=== PATIENT | female | born 1965 | race Caucasian/White ===

== ENCOUNTER 2016-10-17 06:41 | Inpatient (IN) | payer MEDICARE, MEDICAID ==
[~2016-10-17] VITALS: Ht 170.2 cm; Wt 66.1 kg
[2016-10-17] VITALS (46 sets, daily range): BP systolic 90–160; RESP 15–30; TEMP 92.2–94.9; BMI 25.1
[2016-10-17] MEDS ORDERED: SODIUM CHLORIDE 0.9% 100 ML IV ONE (08:46)
[2016-10-17] MEDS ORDERED: CEFTRIAXONE 1 GM VIAL ONE (08:46)
[2016-10-17] MEDS ORDERED: MAGNESIUM SULFATE IV ONE (08:46)
[2016-10-17] MEDS ORDERED: SODIUM CHLORIDE 0.9% 2,000 ML ONE (09:59)
[2016-10-17] MEDS ORDERED: PHARMACY TO DOSE VANCOMYCIN IV SCH (10:15)
[2016-10-17] MEDS ORDERED: SALINE FLUSH 10 ML FLUSH PRN (10:20)
[2016-10-17] MEDS ORDERED: ONDANSETRON 4 MG VIAL IV PRN (10:20)
[2016-10-17] MEDS ORDERED: DUONEB INH PRN (10:20)
[2016-10-17] MEDS ORDERED: SODIUM CHLORIDE 0.9% 1,000 ML IV SCH (10:20)
[2016-10-17] MEDS ORDERED: GLUCAGON 1 MG VIAL IM PRN (10:35)
[2016-10-17] MEDS ORDERED: DEXTROSE 50% SYRINGE 50 ML IV PRN ×3 (10:35→12:40)
[2016-10-17] MEDS ORDERED: SOD BICARB 8.4% VIAL 50 ML ONE (11:26)
[2016-10-17] MEDS ORDERED: DEXTROSE 5% 1,000 ML ONE (11:27)
[2016-10-17] MEDS ORDERED: INSULIN DRIP 1 UNIT/ML 100 ML IV SCH (12:15)
[2016-10-17] MEDS ORDERED: [UNRECOGNIZED DRUG - REMARK] XX SCH (12:21)
[2016-10-17] MEDS: MAGNESIUM SULF 1 GM/100 ML 100 ML IV SCH ×4 (12:23→17:05)
[2016-10-17] MEDS ORDERED: NOREPINEPHRINE 1 MG/ML 4 ML VIAL IV ONE (12:31)
[2016-10-17] MEDS ORDERED: EPINEPHrine 1 MG/10 ML SYR IV ONE (12:32)
[2016-10-17] MEDS ORDERED: SODIUM CHLORIDE 0.9% 3,000 ML ONE (12:32)
[2016-10-17] MEDS ORDERED: SOD BICARB 8.4% SYR 50 ML ONE (12:32)
[2016-10-17] MEDS ORDERED: LACTATED RINGERS IV ONE (12:34)
[2016-10-17] MEDS ORDERED: SODIUM CHLORIDE 0.9% 250 ML IV ONE (12:34)
[2016-10-17] MEDS ORDERED: ED DOPamine PREMIX 250 ML IV ONE (12:34)
[2016-10-17] MEDS ORDERED: DEXTROSE 5% IV SCH (12:40)
[2016-10-17] MEDS ORDERED: CISATRACURIUM BESYLATE IV SCH (12:40)
[2016-10-17] MEDS: [UNRECOGNIZED DRUG - REMARK] XX SCH ×3 (12:40→23:59)
[2016-10-17] MEDS ORDERED: FENTANYL IV SCH (12:45)
[2016-10-17] MEDS: SODIUM BICARB 8.4% 150 ML in DEXTROSE 5% 1,000 ML IV SCH ×2 (12:52→20:55)
[2016-10-17] MEDS: NOREPINEPHRINE 16 MG in DEXTROSE 5% 234 ML IV SCH (12:52)
[2016-10-17] MEDS: PROPOFOL 100 ML 100 ML IV SCH ×3 (13:01→21:09)
[2016-10-17] MEDS: FENTANYL DRIP 50 ML IV SCH ×2 (13:01→16:51)
[2016-10-17] MEDS: PANTOPRAZOLE 40 MG VIAL IV SCH (13:08)
[2016-10-17] MEDS: INSULIN DRIP 1 UNIT/ML 100 ML IV PRN (13:09)
[2016-10-17] MEDS: ARTIFICIAL TEARS OINT EYE EACH SCH ×7 (13:19→23:58)
[2016-10-17] MEDS: ACETAMINOPHEN 1,000 MG/100 ML IV SCH ×2 (13:31→19:06)
[2016-10-17] MEDS ORDERED: MISSING DOSE XX ONE ×2 (14:15→18:20)
[2016-10-17] MEDS: CEFEPIME 2,000 MG in SODIUM CHLORIDE 0.9% 100 ML IV SCH ×2 (14:22→23:20)
[2016-10-17] MEDS: VANCOMYCIN 1,250 MG in SODIUM CHLORIDE 0.9% 250 ML IV SCH (15:26)
[2016-10-17] MEDS ORDERED: LACT RINGERS 1,000 ML IV ONE ×3 (16:15→17:00)
[2016-10-17] MEDS: POTASSIUM CHLORIDE PREMIX 50 ML IV PRN ×2 (19:17→20:33)
[2016-10-17] MEDS: SALINE FLUSH 10 ML FLUSH SCH (20:21)
[2016-10-17] MEDS ORDERED: MAGNESIUM SULF 1 GM/100 ML 100 ML IV ONE (20:35)
[2016-10-17] MEDS: FAMOTIDINE 20 MG INJ IV SCH (20:44)
[2016-10-17] MEDS: CHLORHEXIDINE 0.12% ORAL CARE FOR VENT PATIENTS 15 ML SWAB SCH (23:58)
[2016-10-18] VITALS (62 sets, daily range): BP systolic 82–165; RESP 13–27; TEMP 92.4–96.4; Ht 170.2 cm; Wt 66.1 kg
[2016-10-18] MEDS: ACETAMINOPHEN 1,000 MG/100 ML IV SCH ×2 (00:49→06:29)
[2016-10-18] MEDS: FENTANYL DRIP 50 ML IV SCH ×3 (00:57→15:23)
[2016-10-18] MEDS: PROPOFOL 100 ML 100 ML IV SCH ×8 (01:24→22:23)
[2016-10-18] MEDS ORDERED: POTASSIUM PHOSPHATE 45 MMOL in SODIUM CHLORIDE 0.9% 500 ML IV ONE (01:40)
[2016-10-18] MEDS: ARTIFICIAL TEARS OINT EYE EACH SCH ×10 (01:47→19:53)
[2016-10-18] MEDS: VANCOMYCIN 1,250 MG in SODIUM CHLORIDE 0.9% 250 ML IV SCH ×2 (01:47→14:44)
[2016-10-18] MEDS ORDERED: MISSING DOSE XX ONE ×3 (02:00→07:35)
[2016-10-18] MEDS: SODIUM BICARB 8.4% 150 ML in DEXTROSE 5% 1,000 ML IV SCH ×2 (04:14→08:28)
[2016-10-18] MEDS: SODIUM CHLORIDE 0.9% FLUSH BAG 500 ML IV SCH (05:26)
[2016-10-18] MEDS: [UNRECOGNIZED DRUG - REMARK] XX SCH ×4 (05:26→23:48)
[2016-10-18] MEDS: INSULIN DRIP 1 UNIT/ML 100 ML IV PRN (05:58)
[2016-10-18] MEDS: SALINE FLUSH 10 ML FLUSH SCH ×2 (08:17→19:53)
[2016-10-18] MEDS: CEFEPIME 2,000 MG in SODIUM CHLORIDE 0.9% 100 ML IV SCH (08:17)
[2016-10-18] MEDS: PANTOPRAZOLE 40 MG VIAL IV SCH (08:18)
[2016-10-18] MEDS: FAMOTIDINE 20 MG INJ IV SCH ×2 (08:18→20:07)
[2016-10-18] MEDS: NOREPINEPHRINE 16 MG in DEXTROSE 5% 234 ML IV SCH (08:19)
[2016-10-18] MEDS: DEXTROSE 5% LACT RINGERS 1,000 ML IV SCH ×2 (09:28→23:48)
[2016-10-18] MEDS: MAGNESIUM SULF 1 GM/100 ML 100 ML IV SCH ×4 (09:29→21:53)
[2016-10-18] MEDS ORDERED: PHARMACY TO DOSE CEFEPIME IV SCH (09:50)
[2016-10-18] MEDS: CHLORHEXIDINE 0.12% ORAL CARE FOR VENT PATIENTS 15 ML SWAB SCH ×2 (11:00→23:48)
[2016-10-18] MEDS ORDERED: CISATRACURIUM 100 MG/250 ML 250 ML IV SCH (14:50)
[2016-10-18] MEDS: LEVETIRACETAM IV SCH ×2 (15:20→19:53)
[2016-10-18] MEDS: SODIUM CHLORIDE 0.9% IV SCH ×2 (15:20→19:53)
[2016-10-18] MEDS: CEFEPIME 2,000 MG in DEXTROSE 5% 100 ML IV SCH (20:07)
[2016-10-18] MEDS: POTASSIUM CHLORIDE PREMIX 50 ML IV SCH ×2 (20:15→21:19)
[2016-10-19] VITALS (53 sets, daily range): BP systolic 70–243; RESP 15–27; TEMP 97.1–100.7
[2016-10-19] MEDS: FENTANYL DRIP 50 ML IV SCH ×4 (00:23→22:50)
[2016-10-19] MEDS: PROPOFOL 100 ML 100 ML IV SCH ×5 (00:39→22:50)
[2016-10-19] MEDS: VANCOMYCIN 1,250 MG in SODIUM CHLORIDE 0.9% 250 ML IV SCH (02:34)
[2016-10-19] MEDS: SODIUM CHLORIDE 0.9% FLUSH BAG 500 ML IV SCH (05:34)
[2016-10-19] MEDS: [UNRECOGNIZED DRUG - REMARK] XX SCH (05:34)
[2016-10-19] MEDS: SALINE FLUSH 10 ML FLUSH SCH ×2 (07:43→21:14)
[2016-10-19] MEDS: CEFEPIME 2,000 MG in DEXTROSE 5% 100 ML IV SCH (07:43)
[2016-10-19] MEDS: LEVETIRACETAM IV SCH ×2 (07:43→21:15)
[2016-10-19] MEDS: SODIUM CHLORIDE 0.9% IV SCH ×2 (07:43→21:15)
[2016-10-19] MEDS: FAMOTIDINE 20 MG INJ IV SCH ×2 (07:44→21:15)
[2016-10-19] MEDS ORDERED: Furosemide 20 MG/2 ML VIAL IV ONE (08:45)
[2016-10-19] MEDS: CEFTRIAXONE 2 GM in SODIUM CHLORIDE 0.9% 50 ML IV SCH (09:14)
[2016-10-19] MEDS: ENOXAPARIN 40 MG/0.4 ML SYR SUBQ SCH (09:15)
[2016-10-19] MEDS ORDERED: VECURONIUM BR 10 MG/10 ML IV ONE (09:25)
[2016-10-19] MEDS: CHLORHEXIDINE 0.12% ORAL CARE FOR VENT PATIENTS 15 ML SWAB SCH (12:01)
[2016-10-19] MEDS: DEXTROSE 5% LACT RINGERS 1,000 ML IV SCH (12:52)
[2016-10-19] MEDS: MAGNESIUM SULF 1 GM/100 ML 100 ML IV SCH ×2 (15:18→16:33)
[2016-10-20] VITALS (38 sets, daily range): BP systolic 70–131; RESP 13–24; TEMP 98.1–99.1
[2016-10-20] MEDS ORDERED: METRONIDAZOLE 500 MG TAB NG ONE (00:13)
[2016-10-20] MEDS: CHLORHEXIDINE 0.12% ORAL CARE FOR VENT PATIENTS 15 ML SWAB SCH ×3 (00:33→23:56)
[2016-10-20] MEDS: DEXTROSE 5% LACT RINGERS 1,000 ML IV SCH (02:33)
[2016-10-20] MEDS: SODIUM CHLORIDE 0.9% FLUSH BAG 500 ML IV SCH (06:18)
[2016-10-20] MEDS ORDERED: Furosemide 20 MG/2 ML VIAL IV ONE ×2 (07:40→07:45)
[2016-10-20] MEDS ORDERED: METRONIDAZOLE 500 MG TAB NG SCH (08:00)
[2016-10-20] MEDS: SODIUM CHLORIDE 0.9% IV SCH ×4 (08:28→23:55)
[2016-10-20] MEDS: LEVETIRACETAM IV SCH ×4 (08:28→23:55)
[2016-10-20] MEDS: SALINE FLUSH 10 ML FLUSH SCH ×2 (08:28→19:44)
[2016-10-20] MEDS: PROPOFOL 100 ML 100 ML IV SCH (08:28)
[2016-10-20] MEDS: FAMOTIDINE 20 MG INJ IV SCH (08:29)
[2016-10-20] MEDS: CEFTRIAXONE 2 GM in SODIUM CHLORIDE 0.9% 50 ML IV SCH (08:29)
[2016-10-20] MEDS: ENOXAPARIN 40 MG/0.4 ML SYR SUBQ SCH (08:29)
[2016-10-20] MEDS ORDERED: Furosemide 20 MG/2 ML VIAL IV SCH (08:55)
[2016-10-20] MEDS ORDERED: Carvedilol 3.125 MG TAB PO SCH (09:00)
[2016-10-20] MEDS: FENTANYL DRIP 50 ML IV SCH (10:11)
[2016-10-20] MEDS: Furosemide 20 MG/2 ML VIAL IV SCH ×2 (16:00→23:54)
[2016-10-20] MEDS: FAMOTIDINE 20 MG TAB NG SCH (19:44)
[2016-10-20] MEDS: Carvedilol 3.125 MG TAB PO SCH (21:55)
[2016-10-20] MEDS ORDERED: POTASSIUM PHOSHATE IV ONE (23:00)
[2016-10-20] MEDS ORDERED: SODIUM CHLORIDE IV ONE (23:00)
[2016-10-20] MEDS: MAGNESIUM SULF 1 GM/100 ML 100 ML IV SCH (23:58)
[2016-10-21] VITALS (33 sets, daily range): BP systolic 81–139; RESP 13–25; TEMP 97.8–100
[2016-10-21] MEDS: MAGNESIUM SULF 1 GM/100 ML 100 ML IV SCH ×6 (01:05→13:23)
[2016-10-21] MEDS: FENTANYL DRIP 50 ML IV SCH (01:06)
[2016-10-21] MEDS: SODIUM CHLORIDE 0.9% FLUSH BAG 500 ML IV SCH ×2 (06:08→06:09)
[2016-10-21] MEDS: LEVETIRACETAM IV SCH ×4 (06:09→23:26)
[2016-10-21] MEDS: SODIUM CHLORIDE 0.9% IV SCH ×4 (06:09→23:26)
[2016-10-21] MEDS ORDERED: PANTOPRAZOLE 40 MG TAB PO SCH (07:00)
[2016-10-21] MEDS: SALINE FLUSH 10 ML FLUSH SCH ×2 (08:47→20:00)
[2016-10-21] MEDS: Furosemide 20 MG/2 ML VIAL IV SCH (08:48)
[2016-10-21] MEDS: FAMOTIDINE 20 MG TAB NG SCH (08:48)
[2016-10-21] MEDS: Carvedilol 3.125 MG TAB PO SCH (08:49)
[2016-10-21] MEDS: CEFTRIAXONE 2 GM in SODIUM CHLORIDE 0.9% 50 ML IV SCH (08:49)
[2016-10-21] MEDS: ENOXAPARIN 40 MG/0.4 ML SYR SUBQ SCH (08:50)
[2016-10-21] MEDS ORDERED: Carvedilol 3.125 MG TAB PO ONE (10:04)
[2016-10-21] MEDS: POTASSIUM CHLORIDE PREMIX 50 ML IV SCH ×3 (10:22→12:47)
[2016-10-21] MEDS: CHLORHEXIDINE 0.12% ORAL CARE FOR VENT PATIENTS 15 ML SWAB SCH (11:27)
[2016-10-21] MEDS ORDERED: *TUBE FEEDS DISCONTINUED, ASSESS/ADJUST MEDICATIONS PO ONE (11:55)
[2016-10-21] MEDS: Furosemide 40 MG/4 ML VIAL IV SCH ×2 (15:04→23:27)
[2016-10-21] MEDS: Carvedilol 6.25 MG TAB PO SCH (20:26)
[2016-10-21] MEDS: FAMOTIDINE 20 MG TAB PO SCH (20:27)
[2016-10-22] VITALS (28 sets, daily range): BP systolic 84–110; RESP 13–22; TEMP 98.8–99.6
[2016-10-22] MEDS: SODIUM CHLORIDE 0.9% IV SCH ×3 (05:40→17:26)
[2016-10-22] MEDS: LEVETIRACETAM IV SCH ×3 (05:40→17:26)
[2016-10-22] MEDS: SODIUM CHLORIDE 0.9% FLUSH BAG 500 ML IV SCH (05:41)
[2016-10-22] MEDS: SALINE FLUSH 10 ML FLUSH SCH ×2 (08:24→20:33)
[2016-10-22] MEDS: Furosemide 40 MG/4 ML VIAL IV SCH (08:24)
[2016-10-22] MEDS: Carvedilol 6.25 MG TAB PO SCH ×2 (08:25→20:33)
[2016-10-22] MEDS: CEFTRIAXONE 2 GM in SODIUM CHLORIDE 0.9% 50 ML IV SCH (08:25)
[2016-10-22] MEDS: FAMOTIDINE 20 MG TAB PO SCH (08:25)
[2016-10-22] MEDS: ENOXAPARIN 40 MG/0.4 ML SYR SUBQ SCH (08:28)
[2016-10-22] MEDS ORDERED: Furosemide 20 MG/2 ML VIAL IV ONE (08:55)
[2016-10-22] MEDS ORDERED: MAGNESIUM SULF 1 GM/100 ML 100 ML IV ONE ×2 (10:55→12:45)
[2016-10-22] MEDS ORDERED: GLUCAGON 1 MG VIAL IM PRN (10:55)
[2016-10-22] MEDS ORDERED: DEXTROSE 50% SYRINGE 50 ML IV PRN (10:55)
[2016-10-22] MEDS: POTASSIUM CHLORIDE PREMIX 50 ML IV SCH ×8 (11:20→15:24)
[2016-10-22] MEDS: METRONIDAZOLE 500 MG TAB PO SCH ×3 (11:21→20:32)
[2016-10-22] MEDS: LACTOBACILLUS ACIDOPH CAP PO SCH ×3 (11:21→20:32)
[2016-10-22] MEDS: MAGNESIUM SULF 1 GM/100 ML 100 ML IV SCH ×8 (12:18→17:27)
[2016-10-22] MEDS: LEVETIRACETAM 500 MG TAB PO SCH (20:33)
[2016-10-23] VITALS (52 sets, daily range): BP systolic 52–130; RESP 11–23; TEMP 97.9–99.6
[2016-10-23] MEDS: SUCRALFATE 1GM/10ML SUSP PO SCH ×2 (06:50→16:54)
[2016-10-23] MEDS: SODIUM CHLORIDE 0.9% FLUSH BAG 500 ML IV SCH ×2 (06:51)
[2016-10-23] MEDS ORDERED: ACETAMINOPHEN 325 MG TAB PO ONE (07:00)
[2016-10-23] MEDS ORDERED: DIPHENHYDRAMINE 25 MG CAP PO ONE (07:00)
[2016-10-23] MEDS: CEFTRIAXONE 2 GM in SODIUM CHLORIDE 0.9% 50 ML IV SCH (08:19)
[2016-10-23] MEDS: ENOXAPARIN 40 MG/0.4 ML SYR SUBQ SCH (08:19)
[2016-10-23] MEDS: LACTOBACILLUS ACIDOPH CAP PO SCH ×3 (08:20→20:28)
[2016-10-23] MEDS: LEVETIRACETAM 500 MG TAB PO SCH ×2 (08:20→20:28)
[2016-10-23] MEDS: Carvedilol 6.25 MG TAB PO SCH ×2 (08:20→20:28)
[2016-10-23] MEDS: SALINE FLUSH 10 ML FLUSH SCH ×2 (08:20→20:28)
[2016-10-23] MEDS: METRONIDAZOLE 500 MG TAB PO SCH ×3 (08:20→20:27)
[2016-10-23] MEDS ORDERED: Furosemide 20 MG/2 ML VIAL IV ONE (11:00)
[2016-10-23] MEDS ORDERED: POTASSIUM PHOSPHATE 45 MMOL in SODIUM CHLORIDE 0.9% 500 ML IV ONE (11:00)
[2016-10-23] MEDS: POTASSIUM CHLORIDE PREMIX 50 ML IV SCH ×3 (11:00→13:00)
[2016-10-23] MEDS: Furosemide 40 MG/4 ML VIAL IV SCH ×3 (12:50→17:30)
[2016-10-23] MEDS: MAGNESIUM SULF 1 GM/100 ML 100 ML IV SCH ×2 (12:59→13:01)
[2016-10-23] MEDS: ASPIRIN EC 81 MG TAB PO SCH (13:00)
[2016-10-23] MEDS: KCL CR 10 MEQ CAP PO SCH ×3 (13:00→20:28)
[2016-10-23] MEDS: POTASSIUM CHLORIDE IV SCH ×2 (13:15→14:53)
[2016-10-23] MEDS: FILL PIGGYBACK IV SCH ×2 (13:15→14:53)
[2016-10-23] MEDS ORDERED: Furosemide 40 MG/4 ML VIAL IV ONE (14:00)
[2016-10-23] MEDS ORDERED: LOPERAMIDE 2 MG CAPSULE PO PRN (16:30)
[2016-10-24] MEDS ORDERED: NEB-ALBUTEROL 2.5 MG/3 ML INH ONE (01:45)
[2016-10-24] MEDS ORDERED: SODIUM CHLORIDE 0.9% IV ONE (01:55)
[2016-10-24] MEDS ORDERED: CALCIUM GLUCONATE 1,000 MG in SODIUM CHLORIDE 0.9% 100 ML IV ONE (01:55)
[2016-10-24] MEDS ORDERED: SODIUM BICARB 8.4% IV ONE (01:55)
[2016-10-24] MEDS ORDERED: KAYEXOLATE 15 GM/60 ML BTL PO ONE (01:55)
[2016-10-24 03:29] VITALS: BP_SYST 100; RESP 16; TEMP 97.9
[2016-10-24 07:55] VITALS: BP_SYST 102; RESP 16; TEMP 99.8
[2016-10-24] MEDS: Furosemide 40 MG/4 ML VIAL IV SCH ×2 (08:23→18:03)
[2016-10-24] MEDS: SUCRALFATE 1GM/10ML SUSP PO SCH ×2 (08:23→18:02)
[2016-10-24] MEDS: CEFTRIAXONE 2 GM in SODIUM CHLORIDE 0.9% 50 ML IV SCH (08:23)
[2016-10-24] MEDS: SODIUM CHLORIDE 0.9% FLUSH BAG 500 ML IV SCH ×2 (08:23)
[2016-10-24] MEDS: SALINE FLUSH 10 ML FLUSH SCH ×2 (08:23→21:33)
[2016-10-24] MEDS: LACTOBACILLUS ACIDOPH CAP PO SCH ×3 (08:24→21:33)
[2016-10-24] MEDS: METRONIDAZOLE 500 MG TAB PO SCH ×3 (08:24→21:34)
[2016-10-24] MEDS: LEVETIRACETAM 500 MG TAB PO SCH ×2 (08:24→21:34)
[2016-10-24] MEDS: KCL CR 10 MEQ CAP PO SCH ×2 (08:24→08:26)
[2016-10-24] MEDS: Carvedilol 6.25 MG TAB PO SCH ×2 (08:24→21:33)
[2016-10-24] MEDS: ASPIRIN EC 81 MG TAB PO SCH (08:24)
[2016-10-24] MEDS: ENOXAPARIN 40 MG/0.4 ML SYR SUBQ SCH (08:25)
[2016-10-24] MEDS: MAGNESIUM SULF 1 GM/100 ML 100 ML IV SCH ×2 (11:03→12:06)
[2016-10-24 11:32] VITALS: BP_SYST 104; RESP 16; TEMP 98.3
[2016-10-24 19:09] VITALS: BP_SYST 110; RESP 18; TEMP 98.3
[2016-10-24 23:00] VITALS: BP_SYST 110; RESP 16; TEMP 98
[2016-10-25 03:07] VITALS: BP_SYST 100; RESP 16; TEMP 98.2
[2016-10-25] MEDS: SODIUM CHLORIDE 0.9% FLUSH BAG 500 ML IV SCH ×2 (05:42→05:43)
[2016-10-25 07:21] VITALS: BP_SYST 106; RESP 16; TEMP 98.2
[2016-10-25] MEDS: SUCRALFATE 1GM/10ML SUSP PO SCH ×2 (07:48→16:26)
[2016-10-25] MEDS: SALINE FLUSH 10 ML FLUSH SCH (07:49)
[2016-10-25] MEDS ORDERED: MISSING DOSE XX ONE (09:50)
[2016-10-25] MEDS: CEFTRIAXONE 2 GM in SODIUM CHLORIDE 0.9% 50 ML IV SCH (09:58)
[2016-10-25] MEDS: LACTOBACILLUS ACIDOPH CAP PO SCH ×2 (09:58→16:26)
[2016-10-25] MEDS: ENOXAPARIN 40 MG/0.4 ML SYR SUBQ SCH (09:58)
[2016-10-25] MEDS: ASPIRIN EC 81 MG TAB PO SCH (09:58)
[2016-10-25] MEDS: Carvedilol 6.25 MG TAB PO SCH (09:58)
[2016-10-25] MEDS: METRONIDAZOLE 500 MG TAB PO SCH ×2 (10:46→16:26)
[2016-10-25] MEDS: Furosemide 40 MG/4 ML VIAL IV SCH ×2 (10:46→16:27)
[2016-10-25] MEDS: LEVETIRACETAM 500 MG TAB PO SCH (10:47)
[2016-10-25] MEDS ORDERED: MAGNESIUM SULF 1 GM/100 ML 100 ML IV SCH (11:00)
[2016-10-25 11:15] VITALS: BP_SYST 110; RESP 16; TEMP 97.1
[2016-10-25] MEDS: POTASSIUM CHLORIDE PREMIX 50 ML IV SCH ×2 (11:43→16:26)
[2016-10-25] MEDS ORDERED: KCL CR 20 MEQ TAB PO SCH (16:00)
[2016-10-25 16:11] VITALS: BP_SYST 112; RESP 16; TEMP 97.1
== END 2016-10-25 18:27 | disposition home or self-care (01) | DRG 870 ==
LOC: ENRESERVTM → ENRESERV → ENRESERVDT → ER 06:41 → EMR 10:11 → CCU 12:06 → 3NT 10-23 21:50
PROVIDERS: ADMIT Internal Medicine; ATTEND Internal Medicine
PROC: 5A1955Z Respiratory Ventilation, Greater than 96 Consecutive Hours (ICD-10-PCS; principal; 2016-10-17)
PROC: 03HY32Z Insertion of Monitoring Device into Upper Artery, Percutaneous Approach (ICD-10-PCS; 2016-10-17)
PROC: 0BH17EZ Insertion of Endotracheal Airway into Trachea, Via Natural or Artificial Opening (ICD-10-PCS; 2016-10-17)
PROC: 05H533Z Insertion of Infusion Device into Right Subclavian Vein, Percutaneous Approach (ICD-10-PCS; 2016-10-18)
DX: A41.9 Sepsis, unspecified organism (principal); J96.01 Acute respiratory failure with hypoxia; R57.0 Cardiogenic shock; G92 Toxic encephalopathy; R56.9 Unspecified convulsions; A04.7 Enterocolitis due to Clostridium difficile; E46 Unspecified protein-calorie malnutrition; E87.4 Mixed disorder of acid-base balance; N39.0 Urinary tract infection, site not specified; T42.8X2A Poisoning by antiparkinsonism drugs and other central muscle-tone depressants, intentional self-harm, initial encounter; T43.012A Poisoning by tricyclic antidepressants, intentional self-harm, initial encounter; E83.42 Hypomagnesemia; B96.20 Unspecified Escherichia coli [E. coli] as the cause of diseases classified elsewhere; T68.XXXA Hypothermia, initial encounter; D64.9 Anemia, unspecified; Z79.82 Long term (current) use of aspirin
CPT/HCPCS: 36415; 36430; 36558; 36600; 51702; 71010; 80048; 80051; 80053; 80069; 80202; 80307; 80320; 80329; 81001; 81025; 82040; 82274; 82330; 82550; 82553; 82607; 82728; 82803; 82947; 83010; 83036; 83540; 83605; 83615; 83690; 83735; 83880; 83930; 84100; 84132; 84466; 84484; 85014; 85018; 85025; 85046; 85610; 85730; 86850; 86870; 86900; 86901; 86902; 86922; 87040; 87071; 87077; 87088; 87186; 87493; 93005; 93306; 94002; 94003; 94660; 94664; 94799; 95819; 96360; 96361; 96365; 96375; 99223; 99232; 99233; 99291